=== PATIENT | male | born 1960 ===

== ENCOUNTER 2021-10-24 19:09 | Emergency (ER) | payer BC ==
[2021-10-24] MEDS: Iopamidol 755 Mg/ML 100 ML Bottle IV SCH (20:40)
[2021-10-24] MEDS: Sodium Chloride 0.9% 50 ML SDV FLUSH ONE (20:40)
[2021-10-24] MEDS: Diltiazem 25 MG/5 ML SDV IVPUSH ONE (21:30)
[2021-10-24] MEDS: Enoxaparin 80 MG/0.8 ML Syringe SUBCUT ONE (21:59)
[2021-10-24] MEDS ORDERED: Diltiazem 120 MG Cap.CD ONE (22:00)
[2021-10-24] MEDS ORDERED: Apixaban 5 MG Tab ONE (22:00)
== END 2021-10-24 22:20 | disposition home or self-care (01) ==
LOC: LB.ED 19:09
DX: I48.91 Unspecified atrial fibrillation (principal); I13.0 Hypertensive heart and chronic kidney disease with heart failure and stage 1 through stage 4 chronic kidney disease, or unspecified chronic kidney disease; E11.9 Type 2 diabetes mellitus without complications; Z87.891 Personal history of nicotine dependence
CPT/HCPCS: 36415; 71260; 80053; 81001; 83880; 84443; 84484; 85025; 93005; 96372; 96374; 99285; A9270; J1650; J3490; Q9967